=== PATIENT | female | born 2000 | race Caucasian/White ===

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

== ENCOUNTER 2022-09-30 23:33 | Emergency (ER) | payer OTHER ==
[~2022-09-30 23:33] MED LIST changes: +CEPHALEXIN500 M1 PO; +DIFLUCAN150 MG PO
[2022-09-30 23:55] LABS: BILIRUBIN Negative (Negative); BLOOD 2+ (Negative); CLARITY Cloudy (Clear); COLOR Yellow (Yellow); GLUCOSE Negative (Negative); KETONE Negative (Negative); LEUKO ESTERASE 2+ (Negative); NITRITE Positive (Negative); PH 5.5 (4.5-8.0); SPECIFIC GRAVITY 1.025 (1.001-1.030)
[2022-10-01 00:11] LABS: EPITHELIAL CELLS 41-50; RBC 31-40 rbc/hpf (0-2); WBC 31-40 wbc/hpf (0-5)
[2022-10-01 00:12] LABS: BACTERIA 2+
[2022-10-01] MEDS ORDERED: CIPRO500 MG PO (00:19)
== END 2022-10-01 00:27 | disposition home or self-care (01) ==
LOC: ED 23:33
PROVIDERS: Internal Medicine
DX: N39.0 Urinary tract infection, site not specified (principal)

== ENCOUNTER 2022-12-02 20:20 | Emergency (ER) | payer OTHER ==
[~2022-12-02] VITALS: Ht 154.9 cm; Wt 50.8 kg
[~2022-12-02 20:20] MED LIST changes: +CIPRO500 MG PO
[2022-12-02 20:51] LABS: BILIRUBIN Negative (Negative); BLOOD Negative (Negative); CLARITY Cloudy (Clear); COLOR Yellow (Yellow); GLUCOSE Negative (Negative); KETONE Negative (Negative); LEUKO ESTERASE 1+ (Negative); NITRITE Negative (Negative); SPECIFIC GRAVITY >= 1.030 (1.001-1.030)
[2022-12-02 21:25] LABS: BACTERIA 1+
[2022-12-02] MEDS ORDERED: CIPRO500 MG PO (21:29)
== END 2022-12-02 21:41 | disposition home or self-care (01) ==
LOC: ED 20:20
PROVIDERS: Physician Assistant Medical
DX: N39.0 Urinary tract infection, site not specified (principal); Z90.49 Acquired absence of other specified parts of digestive tract

== ENCOUNTER 2023-11-22 18:40 | Emergency (ER) | payer OTHER ==
[~2023-11-22] VITALS: Ht 152.4 cm; Wt 54.4 kg
[2023-11-22 19:38] LABS: BILIRUBIN Negative (Negative); BLOOD Trace-Lysed (Negative); CLARITY Turbid (Clear); COLOR Yellow (Yellow); GLUCOSE Negative (Negative); KETONE Negative (Negative); LEUKO ESTERASE 3+ (Negative); NITRITE Positive (Negative)
[2023-11-22 19:45] LABS: BACTERIA 3+; WBC TNTC wbc/hpf (0-5)
[2023-11-22] MEDS ORDERED: SEPTDS PO (20:18)
[2023-11-22] MEDS ORDERED: Sulfamethoxazole/Trimethopri 1 TAB TAB PO ONE (20:20)
== END 2023-11-22 20:30 | disposition home or self-care (01) ==
LOC: ED 18:40
PROVIDERS: Physician Assistant Medical
DX: N39.0 Urinary tract infection, site not specified (principal); Z90.49 Acquired absence of other specified parts of digestive tract